=== PATIENT | female | born 2000 | race Two or more races ===

== ENCOUNTER → 2021-10-08 | Emergency (ER) | payer BC, OTHER ==
[~2021-10-08] VITALS: Ht 170.2 cm; Wt 61.7 kg
[~2021-10-08] MED LIST: HYD25TP TOP; HYDR-3682 PO; PER60TP TOP
[2021-10-09 00:30] VITALS: BP 133/90
== END | disposition home or self-care (01) ==
LOC: ER 23:52
DX: L30.9 Dermatitis, unspecified (principal); B86 Scabies